=== PATIENT | male | born 1995 | race Caucasian/White ===

== ENCOUNTER 2022-06-09 20:19 | Emergency (ER) | payer OTHER ==
[2022-06-09] MEDS ORDERED: IBUPROFEN 800 MG TABLET PO STA (21:08)
--- NOTE | 2022-06-09 21:47 | ED Physician Documentation ---
PD HPI URI - Stated complaint Stated Complaint: C+,CHEST PX - Chief complaint Chief Complaint: Fever - History obtained from History obtained from: Patient - Additional information Additional information: Patient is a 26-year-old male with no significant past medical history presenting for evaluation of intermittent chest pain that started approximately 1 hour prior to arrival while he was sitting watching TV. He recently tested positive for COVID-19 yesterday. While flying back from his wedding he started feeling body aches, feverish, having a sore throat and having a nonproductive cough. When the arrived home he and his both took COVID test which were positive. He has been using acetaminophen for his fever which has been helping. He developed midsternal chest pain which is intermittent (lasts 1-2 minutes) without any known exacerbating or alleviating factors. The pain does not radiate. It is not currently present. He denies pain with inspiration or taking deep breaths. He denies feeling short of breath. Review of Systems Constitutional: reports: Fever Throat: reports: Sore throat Cardiac: reports: Chest pain / pressure Respiratory: reports: Cough. denies: Dyspnea GI: denies: Abdominal Pain, Vomiting : denies: Dysuria Musculoskeletal: denies: Neck pain, Back pain Neurologic: denies: Headache PD PAST MEDICAL HISTORY - Present Medications Home Medications: Ambulatory Orders Medication Instructions Recorded Confirmed No Known Home Medications 06/09/22 06/09/22 - Allergies Allergies/Adverse Reactions: Allergies Allergy/AdvReac Type Severity Reaction Status Date / Time No Known Drug Allergies Allergy Verified 06/09/22 20:38 PD ED PE NORMAL - General General: Alert and oriented X 3, No acute distress, Well developed/nourished - HEENT HEENT: Atraumatic, Moist mucous membranes, Pharynx benign (No oral swelling/erythema/exudate) - Neck Neck: Supple, no meningeal sign - Cardiac Cardiac: RRR, No murmur, Strong equal pulses - Respiratory Respiratory: No respiratory distress, Clear bilaterally - Abdomen Abdomen: Normal bowel sounds, Soft, Non tender, Non distended - Derm Derm: Warm and dry - Extremities Extremities: No edema, No calf tenderness / cord - Neuro Neuro: Alert and oriented X 3, Normal speech Results - Vitals Vitals: Vital Signs - 24 hr 06/09/22 06/09/22 20:35 21:50 Temperature 39.0 C H 37.7 C Heart Rate 97 85 Respiratory 16 23 Rate Blood Pressure 130/83 H 137/80 H O2 Saturation 98 100 Oxygen O2 Source Room air - EKG (time done) 2036 Rate: Rate (enter#) (77) Rhythm: NSR [place]: Normal Intervals: No: Prolonged QT Ischemia: No: ST elevation c/w ischemia, ST depression Compare to prior EKG: Old EKG unavailable PD MEDICAL DECISION MAKING - ED course Complexity details: reviewed results, re-evaluated patient, d/w patient ED course: Patient presenting for evaluation of chest pain. He has tested positive for COVID 19 yesterday and has had a fever and dry cough. His EKG is reassuring without signs of acute ischemia and his chest x-ray is clear.His pain has resolved prior to coming to the emergency department and has not reoccurred. His symptoms sound atypical for ACS And he is PERC negative.Patient counseled on continuing supportive care as well as concerning symptoms to return for. Departure - Departure Disposition: 01 Home, Self Care Clinical Impression: COVID-19 Chest pain Qualifiers: Chest pain type: unspecified Qualified Code(s): R07.9 - Chest pain, unspecified Condition: Stable Instructions: ED Chest Pain Atypical Unkn Cause, ED Fever Control Comments: You were evaluated for chest pain. Your EKG is reassuring and your chest xray is clear. You also have COVID-19. Please make sure to follow quarantine guidelines as set by the CDC. Is important to stay hydrated. Please use acetaminophen or ibuprofen as needed for fevers. At this time you do not require hospitalization. If you have any worsening symptoms please return to the ER. Discharge Date/Time: 06/09/22 21:50
[2022-06-09 21:52] VITALS: BP 137/80
--- NOTE | 2022-06-09 22:38 | XRAY Report ---
PROCEDURE: Chest 1 View X-Ray INDICATIONS: CP TECHNIQUE: One view of the chest was acquired. COMPARISON: None. FINDINGS: Surgical changes and devices: None. Lungs and pleura: No pleural effusions or pneumothorax. Lungs are clear. Mediastinum: Mediastinal contours appear normal. Heart size is normal. Bones and chest wall: No suspicious bony lesions. Overlying soft tissues appear unremarkable. IMPRESSION: 1. No evidence of pneumonia. Reviewed by: Al Tillman MD on 06/09/2022 10:37 PM PDT Approved by: Al Tillman MD on 06/09/2022 10:37 PM PDT Station ID: [id number]
== END 2022-06-09 21:50 | disposition home or self-care (01) ==
LOC: ED 20:19
DX: U07.1 COVID-19 (principal); R07.9 Chest pain, unspecified
CPT/HCPCS: 71045; 93005; 99282; 99283; A9270

== ENCOUNTER 2023-03-25 12:41 | Outpatient (CLI) | payer OTHER ==
--- NOTE | 2023-03-25 18:08 | XRAY Report ---
PROCEDURE: Knee 3 View LT INDICATIONS: CONTUSION OF LOWER BACK AND PELVIS TECHNIQUE: 3 views of the left knee(s) were acquired. COMPARISON: None. FINDINGS: Bones: No fractures or dislocations. No suspicious bony lesions. Soft tissues: No knee joint effusion. No suspicious soft tissue calcifications. IMPRESSION: No acute bony abnormality. If there remains a high clinical concern for fracture, consider cross-sect ional imaging now. If pain persists, consider repeat x-ray in 10-14 days or cross-sectional imaging. Reviewed by: Colton Calderon MD on 03/25/2023 6:06 PM PDT Approved by: Colton Calderon MD on 03/25/2023 6:06 PM PDT Station ID: [id number]
--- NOTE | 2023-03-25 18:14 | XRAY Report ---
PROCEDURE: Thoracic Spine 2 View INDICATIONS: CONTUSION OF LOWER BACK AND PELVIS TECHNIQUE: 2 views of the thoracic spine were acquired. COMPARISON: None. FINDINGS: Bones: No fractures or dislocations. No suspicious bony lesions. 12 pairs of ribs are noted, and a ppear intact where visualized. Soft tissues: No paravertebral stripe thickening. IMPRESSION: No thoracic spine vertebral body fracture identified radiographically. If symptoms persist, follow-up radiographs and/or CT or MRI may be helpful for further evaluation. Reviewed by: Colton Calderon MD on 03/25/2023 6:12 PM PDT Approved by: Colton Calderon MD on 03/25/2023 6:12 PM PDT Station ID: [id number]
== END 2023-03-25 12:42 | disposition home or self-care (01) ==
LOC: DI 12:41
PROVIDERS: ATTEND Family Medicine
DX: S30.0XXA Contusion of lower back and pelvis, initial encounter (principal)